=== PATIENT | male | born 1950 | race Caucasian/White ===

== ENCOUNTER 2020-08-03 07:18 | Outpatient (CLI) | payer MEDICARE, OTHER, SELFPAY ==
--- NOTE | 2020-08-03 07:46 | ECHO_ITS ---
Patient Info Name: Edy Colindres Age: 69 years : 1950 Gender: Male Ht: 68 in Wt: 270 lbs BSA: 2.48 m2 HR: 65 bpm BP: 130 / 86 mmHg Heart Rhythm: Sinus Rhythm Technical Quality: Good Exam Date: 08/03/2020 8:04 AM Exam Location: [facility] Patient Status: Outpatient Admit Date: 08/03/2020 Staff Ordering Physician: Laura Kwan Calender Machine Operator: Brenda Saul RDCS Attending Provider: Laura Kwan Referring Physician: Aquiles MARTÍNEZ; Exam Type: CA echo doppler color flow Study Info Indications R06.02 - Shortness of breath Complete two-dimensional, color flow and Doppler transthoracic echocardiogram is performed. History/Risk Factors Shortness of breath. Summary 1. Complete two-dimensional, color flow and Doppler transthoracic echocardiogram is performed. 2. Left ventricular chamber dimension is normal. 3. Left ventricular systolic function is normal, estimated at 60-65%. 4. The left ventricular diastolic function is grade I diastolic dysfunction. 5. E/e' 11 is mildly elevated. 6. There is mild aortic valve sclerosis. 7. There is mild tricuspid valve regurgitation. 8. No pulmonary hypertension, estimated pulmonary arterial systolic pressure is 20 mmHg. Left Ventricle E/e' 11 is mildly elevated. Left ventricular chamber dimension is normal. Left ventricular systolic function is normal, estimated at 60-65%. The left ventricular diastolic function is grade I diastolic dysfunction. Right Ventricle Right ventricular chamber dimension is normal. Right ventricular systolic function is normal. Left Atria Left atrial chamber dimension is normal. Right Atria Right atrial chamber dimension is normal. Aortic Valve The aortic valve is trileaflet. There is mild aortic valve sclerosis. There is no aortic valve stenosis. There is no aortic valve regurgitation. Pulmonic Valve There is no pulmonic regurgitation. Mitral Valve There is no mitral valve stenosis. There is no mitral valve regurgitation. Tricuspid Valve There is mild tricuspid valve regurgitation. No pulmonary hypertension, estimated pulmonary arterial systolic pressure is 20 mmHg. Pericardium/Pleural There is no pericardial effusion. Inferior Vena Cava Normal inferior vena cava with >50% collapse upon inspiration consistent with normal right atrial pressure, 5 mmHg. Aorta The aortic root size at the sinus of Valsalva is normal. Left Ventricular Outflow Tract Name Value Normal LVOT 2D LVOT Diameter 2.0 cm LVOT Doppler LVOT Peak Gradient 3 mmHg LVOT Mean Gradient 2 mmHg LVOT VTI 17 cm LVOT VTI/AV VTI Ratio 0.8 LVOT Stroke Volume 52 ml LVOT CO 3.6 l/min LVOT CI 1.4 l/min/m2 Mitral Valve Name Value Normal
--- NOTE | 2020-08-03 07:46 | EST_ITS ---
Patient Info Name: Edy Colindres Age: 69 years : 1950 Gender: Male Ht: 68 in Wt: 270 lbs BSA: 2.48 m2 Exam Date: 08/03/2020 8:57 AM Exam Location: [facility] Stress Patient Status: Outpatient Admit Date: 08/03/2020 Staff Ordering Physician: Laura Kwan Attending Provider: Laura Kwan Exercise Technologist: Tiffanie Santana RDCS Exercise Physician: Tone Cuevas DO Exam Type: CA stress test treadmill Study Info Indications R06.02 - Shortness of breath A treadmill exercise stress test was performed. Summary 1. 1. Negative Mike exercise stress test for ischemic ST changes by ECG criteria. 2. 2. Poor functional capacity, achieving 4 METs of workload. 3. 3. Hypertensive response to exercise. 4. 4. Appropriate HR response to exercise. 5. 5. Appropriate HR recovery at 1 minute post exercise. 6. 6. No imaging with stress testing. 7. 7. Patient informed of the above results. Protocol: Mike Stress ECG Details Stage: REST Duration (min): 9 min : 48 sec Speed (mph): 0.0 Grade (%): 0 HR (bpm): 73 SBP (mmHg): 129 DBP (mmHg): 83 METS: --- Stage: REST Duration (min): 11 min : 57 sec Speed (mph): 0.0 Grade (%): 0 HR (bpm): 74 SBP (mmHg): 129 DBP (mmHg): 83 METS: --- Stage: REST Duration (min): 12 min : 24 sec Speed (mph): 0.0 Grade (%): 0 HR (bpm): 71 SBP (mmHg): 129 DBP (mmHg): 83 METS: --- Stage: REST Duration (min): 13 min : 16 sec Speed (mph): 0.0 Grade (%): 0 HR (bpm): 82 SBP (mmHg): 129 DBP (mmHg): 83 METS: --- Stage: STAGE 1 Duration (min): 1 min : 0 sec Speed (mph): 1.7 Grade (%): 10 HR (bpm): 111 SBP (mmHg): 129 DBP (mmHg): 83 METS: --- Stage: STAGE 1 Duration (min): 2 min : 0 sec Speed (mph): 1.7 Grade (%): 10 HR (bpm): 133 SBP (mmHg): 129 DBP (mmHg): 83 METS: --- Stage: STAGE 1 Duration (min): 3 min : 0 sec Speed (mph): 1.7 Grade (%): 10 HR (bpm): 133 SBP (mmHg): 211 DBP (mmHg): 87 METS: --- Stage: RECOVERY Duration (min): 1 min : 0 sec Speed (mph): 0.0 Grade (%): 0 HR (bpm): 115 SBP (mmHg): 211 DBP (mmHg): 87 METS: --- Stage: RECOVERY Duration (min): 2 min : 0 sec Speed (mph): 0.0 Grade (%): 0 HR (bpm): 80 SBP (mmHg): 219 DBP (mmHg): 92 METS: --- Stage: RECOVERY Duration (min): 3 min : 0 sec Speed (mph): 0.0 Grade (%): 0 HR (bpm): 80 SBP (mmHg): 209 DBP (mmHg): 90 METS: --- Stage: RECOVERY Duration (min): 4 min : 0 sec Speed (mph): 0.0 Grade (%): 0 HR (bpm): 79 SBP (mmHg): 209 DBP (mmHg): 90 METS: --- Stage: RECOVERY Duration (min): 5 min : 0 sec Speed (mph): 0.0 Grade (%): 0 HR (bpm): 91 SBP (mmHg): 209 DBP (mmHg): 90 METS: --- Stage: RECOVERY Duration (min
== END 2020-08-03 07:19 | disposition home or self-care (01) ==
PROVIDERS: PCP Internal Medicine; Visit Provider Clinical Nurse Specialist
DX: R06.02 Shortness of breath (principal); I35.8 Other nonrheumatic aortic valve disorders; I07.1 Rheumatic tricuspid insufficiency
CPT/HCPCS: 93017; 93306

== ENCOUNTER 2020-08-25 07:09 | Outpatient (CLI) | payer MEDICARE, OTHER, SELFPAY ==
--- NOTE | 2020-09-16 20:53 | WPDHOMESLEEP ---
Sleep Study - Home Date of Study: 08/25/20 Ordering Provider: Lorin Oakes MD Interpreting Physician: Esha Alvarez MD Home Sleep Study Type: Apnea Link Air Height: 1.73 m Weight: 124.738 kg Body Mass Index: 41.8 [place]: 4 Reason for Sleep Study Prior history of obstructive sleep apnea in 2011; depression, hypertension. Sleep History Edy Colindres is a 69-year-old man 5 ft 8 in tall 275 lb with a body mass index 41.8. His Initial study July 07, 2011 showed severe obstructive sleep apnea with an apnea-hypopnea index of 32.1 with moderate snoring and multiple and severe oxygen desaturation with moderate myoclonus. On August 04, 2011 he had a CPAP titration with an optimal pressure of 15 cm with correction of respiratory events and snoring. The patient completed a sleep questionnaire indicating that he frequently snores but it is only rarely loud enough that others complain about it. He rarely awakens at night with heartburn, belching, or coughing. He does not awaken from sleep feeling short of breath. He rarely has trouble sleeping with a cold. He does not wake up gasping for breath at night. He does not have breathing problems at night reported to him by others. He does not sweat excessively at night and does not notice his heart pounding or beating irregularly night. He occasionally falls asleep during the day, never involuntarily and never while driving. He does not fall asleep during physical effort. He does not have loss of muscle tone was strong emotion. He does not have daytime difficulties due to excessive sleepiness. Does not feel paralyzed on waking or falling asleep. He does not have vivid dreamlike scenes upon awakening or falling asleep. He has never freight to go to sleep. He denies having nightmares. He occasionally remembers his dreams. He rarely has racing thoughts rarely has feelings of sadness or depression. He does not have anxiety, muscular tension, does not notice part his body jerking, he does not kick at night and denies having crawling or aching feelings in his legs. He does not have leg pain at night. He does not have morning jaw pain. He does not grind his teeth during sleep. He is not bothered by pain during the day. He is not awakened by pain during the night, does not wake up feeling stiff in the morning with sore or achy muscles. He does not have pain in the neck or spine. He does take and acids regularly. He indicates that he does have sexual problems. Occasionally wakes up feeling refreshed. rarely has memory or concentration problems. Normal schedule reveals he goes to bed at 10:00 p.m. falling asleep within 30 minutes waking twice to go to the bathroom. When he awakens, he stays awake for about half an hour. He wakes the morning at 7:00 a.m.. He does take naps. A short nap may be refreshing. He is usually drowsy in the morning for 1 hour or longer. He feels better in the afternoon compared to other times of the day. Habits: Quit tobacco 40 years ago. Caffeine 4l cups per day. Alcohol 2-3 beers per day. No recreational drugs. [facility] Past Medical History Medical History (Updated 09/16/20 @ 21:33 by Esha Alvarez MD) Acute adjustment disorder with depressed mood Angioedema Chicken pox Chronic bronchitis Depression Diabetes History of measles, mumps, or rubella Hyperlipidemia Hypertension Left ankle injury surgical repair Obesity Obstructive sleep apnea (~2010) Type 2 diabetes mellitus Family History Family History (Reviewed 12/24/19 @ 13:25 by Eliza Livingston [facility]) Father Heart disease Mother COPD (chronic obstructive pulmonary disease) CHF (congestive heart failure), NYHA class I Cerebrovascular accident Social History Social History (Updated 09/16/20 @ 21:35 by Esha Alvarez MD) Smoking status: Former smoker Smoking end date: 11/26/76 Alcohol intake: current Alcohol use details: 2-3 beers a day Living arrangements: with family
[2020-09-16 21:36] VITALS: BMI 41.8
== END 2020-08-25 07:10 | disposition home or self-care (01) ==
LOC: ANHCSM 07:14
PROVIDERS: PCP Internal Medicine; Visit Provider Internal Medicine Endocrinology, Diabetes & Metabolism
DX: G47.33 Obstructive sleep apnea (adult) (pediatric) (principal); I10 Essential (primary) hypertension; J42 Unspecified chronic bronchitis; E11.9 Type 2 diabetes mellitus without complications; E78.5 Hyperlipidemia, unspecified; E66.9 Obesity, unspecified; F32.9 Major depressive disorder, single episode, unspecified; F43.21 Adjustment disorder with depressed mood; Z87.891 Personal history of nicotine dependence
CPT/HCPCS: 95806

== ENCOUNTER 2020-12-25 14:33 | Emergency (ER) | payer MEDICARE, OTHER, SELFPAY ==
--- NOTE | ~2020-12-25 | XR_ITS ---
[id number] DATE: 12/25/2020 15:13 INDICATION: Right rib injury 2 days ago. Axillary rib pain. TECHNIQUE: PA chest. 3 views of the right ribs. COMPARISON: None FINDINGS: There is recent fracture of the anterior aspect of the right eighth, ninth, 10th and 11th r ibs. There is displacement at the ninth and to a lesser extent 10th rib fractures. Diffuse idiopathic skeletal hyperostosis and mild dextroscoliosis of the thoracic spine. Normal heart size. No hilar or mediastinal enlargement. No pulmonary infiltrate or consolidation, pleural effusion or pneumothorax is detected. IMPRESSION: Right eighth through 11th rib fractures Reviewed, dictated and finalized at [facility]. Reviewed, dictated and finalized at location [facility]. ICAL PATHOLOGIST
[2020-12-25 14:42] VITALS: BP 139/87; PULSE 73; RESP 18; TEMP 36.2; O2SAT 98
--- NOTE | 2020-12-25 16:08 | ED.GENADULT ---
HPI - General Adult General Chief complaint: Unspecified <Brittany Marina PA-C - Last Filed: 12/25/20 21:03> Stated complaint: Right Rib Pain <Brittany Marina PA-C - Last Filed: 12/25/20 21:03> Time Seen by Provider: 12/25/20 14:39 <Brittany Marina PA-C - Last Filed: 12/25/20 21:03> Source: patient <ROSALINDA Ramos Last Filed: 12/25/20 21:03> Mode of arrival: ambulatory <ROSALINDA Ramos Last Filed: 12/25/20 21:03> Limitations: no limitations <ROSALINDA Ramos Last Filed: 12/25/20 21:03> History of Present Illness HPI narrative: Patient presents with chief complaint of pain to the right lower ribs that began on after the patient fell onto a futon arm while stacking wood. Patient states that he has since had some discomfort to the area but he noticed his discomfort increased with deep breathing, sneezing and coughing. Patient states he is still able to take deep breaths. Patient denies coughing up blood or feeling short of breath. Patient denies any head injury or loss of consciousness. He states he has some bruising to the right lower thorax. He states he has been taking tylenol and aleve at home with minimal improvement. <Brittany Marina PA-C - Last Filed: 12/25/20 21:03> Related Data Home medications: Home Medications Medication Instructions Recorded Confirmed lancets 30 gauge #25 each 04/06/20 07/06/20 omalizumab 75 mg/0.5 mL 150 mg SUB-Q MONTHLY ml 07/08/20 subcutaneous syringe omeprazole 10 mg capsule,delayed 10 mg PO DAILY 07/08/20 release <ROSALINDA Ramos Last Filed: 12/25/20 21:03> Allergies/adverse reactions: Allergies Allergy/AdvReac Type Severity Reaction Status Date / Time No Known Allergies Allergy Verified 12/25/20 14:47 <ROSALINDA Ramos Last Filed: 12/25/20 21:03> Review of Systems Review of Systems: Narrative: CONSTITUTIONAL: Denies fever, chills, or sweats. EYES: Denies visual changes, redness, or discharge. ENT: Denies rhinorrhea, congestion, sore throat, or otalgia. CARDIOVASCULAR: Denies chest pain, palpitations, or edema. RESPIRATORY: Denies cough or dyspnea. GASTROINTESTINAL: Denies abdominal pain, nausea, vomiting, or diarrhea. GENITOURINARY: Denies dysuria or hematuria. SKIN: Denies rash or itching. MUSCULOSKELETAL: Reports right rib pain denies back pain or myalgia. NEUROLOGIC: Denies headache, numbness, dizziness, or weakness. PSYCHIATRIC: Denies anxiety or depression. <Brittany Marina PA-C - Last Filed: 12/25/20 21:03> [facility] Past Medical History Medical History: Medical History Acute adjustment disorder with depressed mood Angioedema Chicken pox Chronic bronchitis Depression Diabetes History of measles, mumps, or rubella Hyperlipidemia Hypertension Left ankle injury surgical repair Obesity Obstructive sleep apnea (~2010) Type 2 diabetes mellitus <Brittany Marina PA-C - Last Filed: 12/25/20 21:03> Family History Family History: Family History Father Heart disease Mother COPD (chronic obstructive pulmonary disease) CHF (congestive heart failure), NYHA class I Cerebrovascular accident <Brittany Marina PA-C - Last Filed: 12/25/20 21:03> Social History Social History: Social History Smoking status: Former smoker Smoking end date: 11/26/76 Alcohol intake: current <Brittany Marina PA-C - Last Filed: 12/25/20 21:03> Exam Narrative: Exam Narrative: GENERAL: Well-appearing, well-nourished, and in no acute distress. HEAD: Normocephalic, atraumatic. No ecchymosis or hematomas. EYES: PERRLA and EOMI. NECK: Supple. No adenopathy or masses. CHEST: Clear to auscultation. No respiratory distress. No wheezes rales or rhonchi. Ecchymosis to right lower thorax. Tenderness with palpation to right low
[2020-12-25] MEDS: HYDROcodone/acetaminophen (*CRX) 5-325 MG TABLET 1 TAB PO (16:15)
== END 2020-12-25 16:37 | disposition home or self-care (01) ==
PROVIDERS: Emergency Provider General Practice; PCP Internal Medicine
DX: S22.49XA Multiple fractures of ribs, unspecified side, initial encounter for closed fracture (principal); E11.9 Type 2 diabetes mellitus without complications; E78.5 Hyperlipidemia, unspecified; I10 Essential (primary) hypertension; G47.33 Obstructive sleep apnea (adult) (pediatric); E66.9 Obesity, unspecified; Z68.41 Body mass index [BMI] 40.0-44.9, adult; Z87.891 Personal history of nicotine dependence; W01.190A Fall on same level from slipping, tripping and stumbling with subsequent striking against furniture, initial encounter
CPT/HCPCS: 71101; 99283; A9270

== ENCOUNTER 2022-06-20 08:18 | Outpatient (CLI) | payer MEDICARE, OTHER, SELFPAY ==
--- NOTE | 2022-06-20 08:29 | ECHO_ITS ---
Patient Info Name: Edy Colindres Age: 71 years : 1950 Gender: Male Ht: 68 in Wt: 260 lbs BSA: 2.43 m2 HR: 70 bpm BP: 145 / 101 mmHg Technical Quality: Good Exam Date: 06/20/2022 8:58 AM Exam Location: [facility] Patient Status: Outpatient Admit Date: 06/20/2022 Staff Ordering Physician: Laura Kwan Vacuum Furnace Operator: Tiffanie Santana RDCS Attending Provider: Laura Kwan Referring Physician: Aquiles MARTÍNEZ; Exam Type: CA echo doppler color flow Study Info Indications R06.02 - Shortness of breath Complete two-dimensional, color flow and Doppler transthoracic echocardiogram is performed. Summary 1. Complete two-dimensional, color flow and Doppler transthoracic echocardiogram is performed. 2. Left ventricular chamber dimension is normal. 3. Left ventricular systolic function is normal, estimated at 55-60%. 4. There is mildly increased left ventricular wall thickness. 5. The left ventricular diastolic function is grade I diastolic dysfunction. 6. E/e' 10 is mildly elevated. 7. Global longitudinal strain is normal at -17.1%. 8. There is mild aortic valve sclerosis. 9. No pulmonary hypertension, estimated pulmonary arterial systolic pressure is 28 mmHg. Left Ventricle E/e' 10 is mildly elevated. Global longitudinal strain is normal at -17.1%. Left ventricular chamber dimension is normal. Left ventricular systolic function is normal, estimated at 55-60%. There is mildly increased left ventricular wall thickness. The left ventricular diastolic function is grade I diastolic dysfunction. Right Ventricle Right ventricular systolic function is normal and with normal TAPSE 2.2 cm. Right ventricular chamber dimension is normal. Left Atria Left atrial chamber dimension is normal. Right Atria Right atrial chamber dimension is normal. Aortic Valve The aortic valve is trileaflet. There is mild aortic valve sclerosis. There is no aortic valve stenosis. There is no aortic valve regurgitation. Pulmonic Valve There is no pulmonic regurgitation. Mitral Valve There is no mitral valve stenosis. There is no mitral valve regurgitation. Tricuspid Valve There is no tricuspid valve regurgitation. No pulmonary hypertension, estimated pulmonary arterial systolic pressure is 28 mmHg. Pericardium/Pleural There is no pericardial effusion. Inferior Vena Cava Normal inferior vena cava with >50% collapse upon inspiration consistent with normal right atrial pressure, 5 mmHg. Aorta The aortic root size at the sinus of Valsalva is normal. Left Ventricular Outflow Tract Name Value Normal LVOT 2D LVOT Diameter 2.0 cm LVOT Doppler LVOT Peak Gradient 3 mmHg LVOT Mean Gradient 2 mmHg LVOT VTI 17 cm LVOT VTI/AV VTI Ratio 0.8 LVOT Stroke Volume 56 ml LVOT CO 4.9 l/min LVOT CI 2.0 l/min/m2 Pulmonic Valve
== END 2022-06-20 08:19 | disposition home or self-care (01) ==
LOC: ANHCARD 08:21
PROVIDERS: PCP Internal Medicine; Visit Provider Clinical Nurse Specialist
DX: R06.02 Shortness of breath (principal); I35.8 Other nonrheumatic aortic valve disorders
CPT/HCPCS: 93306

== ENCOUNTER 2022-07-10 08:02 | Outpatient (CLI) | payer MEDICARE, OTHER, SELFPAY ==
--- NOTE | ~2022-07-10 | NM_ITS ---
EXAMINATION: NM michelle stress w perfusion DATE: 07/10/2022 10:41 CDT INDICATION: Shortness of breath TECHNIQUE: Rest images were obtained following intravenous administration of 9.6 mCi Tc99m tetrofosmi n (Myoview). The patient was infused intravenously with Lexiscan (regadenoson). Then, 31.5 mCi Tc99m tetrofosmin (Myoview) was administered intravenously, and stress images were obtained. Data was recon structed into short axis and horizontal and vertical long axis SPECT images. Gated SPECT images were also obtained. COMPARISON: None. FINDINGS: There is no definite reversible or fixed perfusion abnormality to suggest ischemia or infar ction. There is no segmental wall motion abnormality. Left ventricular ejection fraction measures 7 3%. IMPRESSION: 1. No definite ischemia or infarct. 2. Normal left ventricular ejection fraction measuring 73%. Reviewed, dictated and finalized at location [facility].
--- NOTE | 2022-07-10 08:11 | EST_ITS ---
Patient Info Name: Edy Colindres Age: 71 years : 1950 Gender: Male Ht: 68 in Wt: 260 lbs BSA: 2.43 m2 HR: 77 bpm BP: 157 / 92 mmHg Heart Rhythm: Sinus Rhythm Exam Date: 07/10/2022 8:51 AM Exam Location: [facility] Stress Patient Status: Outpatient Admit Date: 07/10/2022 Staff Ordering Physician: Laura Kwan Attending Provider: Laura Kwan Exercise Technologist: Karyn Huizar CT Exercise Physician: Tone Cuevas DO Exam Type: CA stress michelle w NM Study Info Indications R06.02 - Shortness of breath A regadenoson stress test was performed. Summary 1. 1. Negative lexiscan stress test for ischemic ST changes by ECG criteria. 2. 2. Baseline hypertension. 3. 3. Nuclear scan to follow and will be reported separately. Please correlate with it. 4. 4. Patient informed of the above results. Protocol: Lexiscan Stress ECG Details Stage: REST Duration (min): 4 min : 47 sec HR (bpm): 70 SBP (mmHg): 157 DBP (mmHg): 92 Stage: REST Duration (min): 9 min : 55 sec HR (bpm): 71 SBP (mmHg): 157 DBP (mmHg): 92 Stage: STAGE 1 Duration (min): 1 min : 0 sec HR (bpm): 98 SBP (mmHg): 157 DBP (mmHg): 92 Stage: RECOVERY Duration (min): 1 min : 0 sec HR (bpm): 90 SBP (mmHg): 151 DBP (mmHg): 87 Stage: RECOVERY Duration (min): 2 min : 0 sec HR (bpm): 71 SBP (mmHg): 151 DBP (mmHg): 87 Stage: RECOVERY Duration (min): 3 min : 0 sec HR (bpm): 80 SBP (mmHg): 151 DBP (mmHg): 94 Stage: RECOVERY Duration (min): 3 min : 4 sec HR (bpm): 86 SBP (mmHg): 151 DBP (mmHg): 94 Rest HR: 71 bpm Peak HR: 98 bpm Rest Sys BP: 157 mmHg Peak Sys BP: 151 mmHg Max Pred HR: 151 bpm % Max Pred HR: 65 % Target HR: 128 bpm Max RPP: 14,798 bpm*mmHg Termination Reason: Completed protocol Cardiac Symptoms: None Total Time: 1 min : 0 sec Rest Aranda BP: 92 mmHg Peak Aranda BP: 94 mmHg Total Dose: 0.4 mg Resting ECG Sinus rhythm. Stress ECG No ST changes. Arrhythmias None. Report Signatures
== END 2022-07-10 08:03 | disposition home or self-care (01) ==
LOC: ANHCARD 08:03
PROVIDERS: PCP Internal Medicine; Visit Provider Clinical Nurse Specialist
DX: R06.02 Shortness of breath (principal)
CPT/HCPCS: 78452; 93017; A9502; J2785

== ENCOUNTER 2022-08-04 10:13 | Outpatient (CLI) | payer MEDICARE, OTHER, SELFPAY ==
[2022-08-04 11:09] LABS: Basophils Absolute Auto 0.1 K/mm3 (0.0-0.1); Basophils Percent Auto 1.5 % (0.2-1.2); Eosinophils Absolute Auto 0.2 K/mm3 (0-0.3); Eosinophils Percent Auto 2.9 % (0-4.4); Hematocrit 46.8 % (42.0-52.0); Hemoglobin 15.5 g/dL (14.0-18.0); Immature Granulocyte Absolute 0.07 K/mm3 (0.00-0.031); Immature Granulocyte Percent A 0.9 % (0-0.5); Lymphocytes Absolute Auto 1.91 K/mm3 (0.9-3.2); Lymphocytes Percent Auto 25.5 % (18.3-44.2); Mean Corpuscular HGB Conc 33.1 g/dl (32-36); Mean Corpuscular Hemoglobin 28.4 pg (26-34); Mean Corpuscular Volume 85.9 fl (80-100); Mean Platelet Volume 10.3 fl (7.4-10.4); Monocytes Absolute Auto 0.6 K/mm3 (0.1-0.6); Monocytes Percent Auto 7.9 % (2.6-8.5); Neutrophils Absolute Auto 4.6 K/mm3 (1.3-6.7); Neutrophils Percent Auto 61.3 % (45.5-73.1); Platelet Count Result 222 k/mm3 (150-375); Red Blood Count 5.45 M/mm3 (4.6-6.20); Red Cell Distribution Width 13.4 % (11.5-14.5); White Blood Count 7.5 K/mm3 (4.5-10.0)
[2022-08-04 12:15] LABS: Free T4 Free Thyroxine 0.86 ng/mL (0.78-2.19); Vitamin D 25 Hydroxy 16.5 ng/mL
[2022-08-04 12:23] LABS: Microalbumin Urine Random 8.2 mg/L (0-16.7)
[2022-08-04 12:25] LABS: MALB Creatinine Ratio 15.8 mg/g (0-30)
[2022-08-04 14:55] LABS: Alanine Aminotransferase 24 U/L (6-50); Albumin Level 4.6 g/dL (3.5-5.1); Alkaline Phosphatase 116 U/L (38-126); Anion Gap 14 mmol/L (8-16); Aspartate Amino Transferase 26 U/L (17-59); Bilirubin,Total 0.4 mg/dL (0.2-1.3); Blood Urea Nitrogen 16 mg/dL (9-20); Calcium 9.7 mg/dL (8.4-10.2); Carbon Dioxide 22 mmol/L (22-30); Chloride 99 mmol/L (98-107); Cholesterol 175 mg/dL (0-200); Estimated Glomerular Filt Rate > 60; Glucose 151 mg/dL (65-110); HDL Direct 54 mg/dL; Potassium 4.3 mmol/L (3.4-5.0); Sodium 135 mmol/L (137-145); Triglycerides 71 mg/dL (<150)
[2022-08-04 15:09] LABS: LDL Cholesterol Direct 91 mg/dL
[2022-08-04 15:26] LABS: Prostate Specific Antigen 2.4 ng/mL (< OR = 4.0)
== END 2022-08-04 10:14 | disposition home or self-care (01) ==
PROVIDERS: PCP Internal Medicine; Referring Provider Clinical Nurse Specialist; Visit Provider Nurse Practitioner Family
DX: E11.9 Type 2 diabetes mellitus without complications (principal); E55.9 Vitamin D deficiency, unspecified; E78.5 Hyperlipidemia, unspecified; E88.81 Metabolic syndrome and other insulin resistance; R06.02 Shortness of breath; Z12.5 Encounter for screening for malignant neoplasm of prostate
CPT/HCPCS: 36415; 80053; 80061; 82043; 82306; 82607; 84153; 84439; 84443; 85025; G0103

== ENCOUNTER 2025-03-24 10:31 | Outpatient (CLI) | payer MEDICARE, OTHER, SELFPAY ==
--- OUTSIDE RECORDS SUMMARY | 2025-03-24 11:44 | XMS_ITS | Continuity of Care Document ---
Author Name [facility] Organization [facility] Care Team Providers Care Email Campaign Specialist Name Role Phone DOD-[facility] Unavailable Unavailable Problems Combined list of problems from Department of Defense and Veterans Affairs facilities. It does not include entries that were removed or entered in error. Problem Status Onset Date Problem Type Date of Resolution Comments Source URTICARIA Active Condition DoD SINUS TACHYCARDIA Active Condition EK G changes for 2002 DoD EDEMA Active Condition DoD visit for: issue repeat prescription Inactive Condition DoD Snoring Active Condition Due to his problem with daytime fatigue, and relatively high risk profile I will send him for sleep study to confirm or refute VIDA DoD DEPRESSION Active Condition Could pos sibly benefit from trial of SSRI - due to multiple med changes today, will reevaluate in 1 month and consider starting then. Pt very comfortable with this POC. [facility] Laboratory Studies Inactive Condition Do D HYPERTENSION (SYSTEMIC) Active Condition Monitor Sodium closely, maintain at 2 gm qd DoD SCOLIOSIS Active Condition Noted curv ature both thoracic and lumbar.Please evaluate DoD HYPERLIPIDEMIA Active Condition DoD ESSENTIAL HYPERTENSION BENIGN Active Condition Still not at goal 130/80. Increase Adalat to 90mg daily, pt to f[facility]u with [facility]M [facility] in 1 month. [facility] DIABETES MELLITUS TYPE 2 Active Condition Will alter regimen slightly - Glucovance 2.5mg/500mg take 1 tab in AM and 1 tab in afternoon, then Glucovance 5/500 take 2 tablets qhs. 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 f/u with new PCM in 1 month, have fasting labs drawn 1-2 days prior to appt. Pt expressed understanding. [facility] DIABETES MELLITUS Active Condition DoD visit for: issue repeat prescription for medication Inactive Condition DoD visit for: administrative purpose Active Condition DoD muscle cramps in the calf Inactive Condition DoD muscle cramps in the thigh (upper leg) Inactive Condition DoD ANGIOEDEMA Inactive Condition DoD UPPER RESPIRATORY INFECTION Inactive Condition Will treat with Entex - pt to drink plenty of water, wash hands regularly and to follow-up if not better after 7-10 days. DoD INGROWING NAIL Inactive Condition Infec tion significantly improved, here for removal. Informed consent signed, in records. Right great toe anesth with 5 cc 1% Lidocaine without epi (digital block), toe prepped/draped in usual fashion. Partial nail excision carried out in usual fashion. [facility] INGROWING NAIL WITH INFECTION Inactive Condition Will sched fo r partial removal. Keflex 500mg bid x 7 days. Will sched pt for removal. [facility] ESSENTIAL HYPERTENSION Active Condition DoD Medications Combined list of outpatient medications from Department of Defense and Veterans Affairs facilities.Medications provided include 1) outpatient medications from the last 15 months, and 2) patient-reported medications. Medication Details Route Status Patient Instructions Prescription Expires Prescription Number Last Dispense Date Ordering Provider Order Date Order Qty Source albuterol 90 mcg inhaler [8.5g] = 2 puff(s), Inhale, every 4 hr, # 8.5 g, 0 total refill(s ), Hard Stop Inhala tion (breat he in) Complet ed 07/31/2024 3 2023 8.5 Ambulat ory Pharmac y albuterol 90 mcg/inh inhalation aerosol INHALE 1 PUFF BY MOUTH EVERY FOUR HOURS NEEDED FOR SHORTNES S OF BREATH OR WHEEZING , # 8.5 g, 1 total refill(s ), Acute Complet ed 05/10/2023 2 2022 8.5 Ambulat ory Pharmac y albuterol 90 mcg/inh inhalation aerosol INHALE 2 PUFFS EVERY 4-6 HOURS NEEDED AND PER THE ASTHMA ACTION PLAN, # 8.5 g, 0 total refill(s ), Acute Complet ed 02/20/20242023 8.5 Ambulat ory Pharmac y aspirin 81 mg oral delayed release tablet TAKE ONE TABLET DAILY, # 90 EA, 1 total refill(s ), Acute Complet ed 05/10/2023 2 2022 90.0 Ambulat ory Pharmac y Baqsimi 3 mg nasal powder [2EA] See Instruct ions, # 2 EA, 4 total refill(s ), Hard Stop Complet ed 12/17/2024 4 2024 2.0 Ambulat ory Pharmac y BD insulin syringe 1 mL 31 g 8 mm [100EA] See Instruct ions, # 100 EA, 3 total refill(s ), Hard Stop Ordered 07/01/2025 4 2023 100.0 Ambulat ory Pharmac y BD insulin syringe 1 mL 31 g 8 mm [100EA] See Instruct ions, # 100 EA, 3 total refill(s ), Hard Stop Complet ed 09/17/2024 4 2023 100.0 Ambulat ory Pharmac y cetirizine 10 mg oral tablet TAKE ONE TABLET TWICE DAILY NEEDED, # 90 EA, 2 total refill(s ), Acute Complet ed 11/13/2023 2 2022 90.0 Ambulat ory Pharmac y dulaglutide 3 mg/0.5 mL subcutaneou s solution INJECT 3MG SUB-CUTA NEOUSLY EVERY WEEK DIRECTED , # 6 mL, 1 total refill(s ), Acute Complet ed 11/07/20232022 6.0 Ambulat ory Pharmac y ergocalcife rol 1.25 mg (50,000 intl units) oral capsule TAKE ONE CAPSULE BY MOUTH EVERY WEEK FOR 8 WEEKS DIRECTED , # 8 EA, 4 total refill(s ), Acute Complet ed 08/06/2023 2 2022 8.0 Ambulat ory Pharmac y freestyle lite (glucose) test strip [50EA] See Instruct ions, # 200 EA, 0 total refill(s ), Hard Stop Complet ed 07/12/2024 4 2023 200.0 Ambulat ory Pharmac y glucagon 1 mg injection MIX AND INJECT 1MG SUB-CUTA NEOUSLY EVERY 20 MINUTES NEEDED FOR LOW BLOOD SUGAR UNTIL TARGET BLOOD SUGAR ATTAINED ., # 1 EA, 0 total refill(s ), Acute Complet ed 08/15/20232022 1.0 Ambulat ory Pharmac y Glucagon 3 mg Powder, Nasal Take or use exactly as directed .Obtain advice for OTCs.For the nose. 12/17/2024 [id number] 4 2023 2 [facility] Azar ONEILL ([facility]) glucose sensor freestyle gianfranco 3 See Instruct ions, # 6 EA, 3 total refill(s ), Hard Stop Complet ed 12/17/2024 4 2024 6.0 Ambulat ory Pharmac y glucose sensor freestyle gianfranco 3 See Instruct ions, # 6 EA, 4 total refill(s ), Hard Stop Ordered 07/01/2025 4 2023 6.0 Ambulat ory Pharmac y insulin glargine [Lantus] 100 units/mL inj-vial [10mL] See dose instruct ions in comments , # 80 mL, 2 total refill(s ), Acute Complet ed 08/08/2023 3 2022 80.0 Ambulat ory Pharmac y insulin glargine [Lantus] 100 units/mL inj-vial [10mL] See Instruct ions, # 80 mL, 3 total refill(s ), Hard Stop Discont inued 03/18/2025 4 2024 80.0 Ambulat ory Pharmac y insulin glargine [Lantus] 100 units/mL inj-vial [10mL] See Instruct ions, # 80 mL, 3 total refill(s ), Soft Stop Ordered 5 2024 80.0 Ambulat ory Pharmac y insulin glargine [Lantus] 100 units/mL inj-vial [10mL] See Instruct ions, # 80 mL, 3 total refill(s ), Hard Stop Discont inued 07/03/2024 3 2023 80.0 Ambulat ory Pharmac y ipratropium 42 mcg/inh (0.06%) nasal spray USE 2 SPRAYS INTRANAS ALLY FOUR TIMES A DAY DIRECTED , # 15 mL, 0 total refill(s ), Acute Complet ed 08/29/20232022 15.0 Ambulat ory Pharmac y ipratropium 42 mcg/inh nasal spray [15mL] = 2 spray(s) , # 45 mL, 0 total refill(s ), Hard Stop Complet ed 07/31/2024 3 2023 45.0 Ambulat ory Pharmac y Jardiance 10 mg tablet See dose instruct ions in comments , # 90 EA, 1 total refill(s ), Acute Complet ed 11/07/2023 3 2022 90.0 Ambulat ory Pharmac y Jardiance 25 mg tablet 25 mg, Oral, Daily, # 90 EA, 1 total refill(s ), Hard Stop Oral (given by mouth) Complet ed 09/17/2024 4 2023 90.0 Ambulat ory Pharmac y Micardis HCT 80 mg- 25 mg tablet = 1 tab(s), Oral, Daily, # 90 EA, 1 total refill(s ), Hard Stop Oral (given by mouth) Complet ed 06/03/2024 4 2023 90.0 Ambulat ory Pharmac y montelukast 10 mg oral tablet TAKE ONE TABLET DAILY, # 90 EA, 1 total refill(s ), Acute Complet ed 11/13/2023 2 2022 90.0 Ambulat ory Pharmac y omeprazole 10 mg oral delayed release capsule TAKE ONE CAPSULE DAILY, # 90 EA, 1 total refill(s ), Acute Complet ed 05/10/20232022 90.0 Ambulat ory Pharmac y OZEMPIC (semaglutid e), 2MG/0.75ML, PEN INJCTR, SUBCUT, OLIVA NORDISK, 3 ml SYRINGE Cancele d [id number] : 2023 0 Pharmac y Data Transac t[employer] Service Facilit y sertraline (U/D) 100 MG ORAL TAB May cause drowsine ss.Take or use exactly as directed .Obtain advice for OTCs. Active 05/07/2025 [id number] 4 2023 135 [employer] Azar ONEILL ([facility]) sertraline 100 mg oral tablet TAKE ONE AND ONE-HALF TABLETS BY MOUTH EVERY DAY, # 135 EA, 1 total refill(s ), Acute Complet ed 05/10/2023 2 2022 135.0 Ambulat ory Pharmac y sertraline 100 mg tablet See Instruct ions, # 135 EA, 1 total refill(s ), Hard Stop Ordered 05/07/2025 4 2023 135.0 Ambulat ory Pharmac y sertraline 100 mg tablet See dose instruct ions in comments , # 135 EA, 1 total refill(s ), Acute Complet ed 11/07/2023 3 2022 135.0 Ambulat ory Pharmac y Trelegy Ellipta 200 mcg-62.5 mcg-25 mcg inh [60EA] See Instruct ions, Inhale, Daily, # 180 EA, 1 total refill(s ), Hard Stop Inhala tion (breat he in) Complet ed 07/31/2024 3 2023 180.0 Ambulat ory Pharmac y Allergies, Adverse Reactions, Alerts Combined list of allergies from Department of Defense and Veterans Affairs facilities. It does not include entries that were removed or entered in error. Substance Category Reaction Severity Reaction type Status Date Reported Comments Source KAT INHIBITORS Drug allergy (disorder) Unknown active 4 [facility] Azar ONEILL ([facility]) KAT inhibitors Propensity to adverse reactions to drug Unknown Active 4 PER PATIENT May EAS/CAPT Unknown Organizatio n Immunizations Combined list of available immunizations from the Department of Defense and Veterans Affairs facilities. Immunization Series Date Given Administered By Site Reaction Lot Number CVX Code Drug Rehab Office Coordinator Status Comments Source COVID-19, mRNA, LNP-S, PF, 30 mcg/0.3 mL dose 2020 [employer] [place] (PFR) Not Given COVID-19, mRNA, LNP-S, PF, 30 mcg/0.3 mL dose [facility] zoster vaccine live 2012 zzLef t Arm [id number] [employer] complet ed zoster vaccine live 04/10/13 Given Ambulat ory Pharmac y tetanus, diphtheria, acellular pertu is 2012 zzLef t Arm [id number] 115 [facility] complet ed tetanus, diphtheri a, acellular pertussis 04/10/13 Given Ambulat ory Pharmac y tetanus toxoid, reduced diphtheria toxoid, and acellular pertu is vaccine, adsorbed 1 2012 Unknown, Provider [id number] 115 [employer] (SKB) complet ed tetanus toxoid, reduced diphtheri a toxoid, and acellular pertussis vaccine, adsorbed [facility] zoster vaccine, live 1 2012 Unknown, Provider [id number] Merck (MSD) complet ed zoster vaccine, live DoD tetanus-dipht h toxoids (Td) adult/adol 2002 zzRig ht Arm [id number] sanofi pasteur complet ed tetanus-d iphth toxoids (Td) adult/ado l 09/24/03 Given Ambulat ory Pharmac y tetanus and diphtheria toxoids, adsorbed, preservative free, for adult use (2 Lf of tetanus toxoid and 2 Lf of diphtheria toxoid) 1 2002 Unknown, Provider [id number] Sanofi Pasteur (PMC) complet ed tetanus and diphtheri a toxoids, adsorbed, preservat kiran free, for adult use (2 Lf of tetanus toxoid and 2 Lf of diphtheri a toxoid) DoD Encounters Combined list of: 1) Encounters from Department of Veterans Affairs facilities going backup to the last 18 months, not all VA inpatient encounters are included; 2) Encounters from the Department of Defense facilities going backup to 280 months. Location Location Details Encounter Type Encounter Number Reason For Visit Attending Provider ADM Date DC Date Status Disposition Source [address] [place] [address] Azar ONEILL [facility] Non-GME FHI2) OUTPATIENT [id number] f/u dm/gabriel wal on meds RUSSEL CRISTOBAL 11/30 Released w/o Limitations [address] [place] [address] Azar ONEILL [facility] Non-GME FHI2) [address] [place] [address] Azar ONEILL [facility] Non-GME FHI2) TELE CONSULT [id number] needs blood work ordered LONI VIERA 03/[address] [place] [address] Azar ONEILL [facility] e Non-GME FHI2) [address] [place] [address] Azar ONEILL [facility] Non-GME FHI2) OUTPATIENT [id number] f/u cholest asad dm sugar levels low/ofelia nge of meds RUSSEL CRISTOBAL 04/11 Released w/o Limitations [address] [place] [address] Azar ONEILL [facility] Non-GME FHI2) [address] [place] [address] Azar B ([facility])([facility] Non-GME FHI2) OUTPATIENT [id number] toenail removal RUSSEL CRISTOBAL 04/14 Released w/o Limitations [address] [place] [address] Azar B ([facility])([facility] Non-GME FHI2) [address] [place] [address] Azar B [facility] Non-GME FHI2) TELE CONSULT [id number] sinus infecti on BROOKE GUO L 09/[address] [place] [address] Azar B [facility] Non-GME FHI2) [address] [place] [address] Azar B [facility] Non-GME FHI2) OUTPATIENT [id number] c/o sinus pain/pr essure, congest ion x 7 days MELANI ROJAS 09/19 Released w/o Limitations [address] [place] [address] Azar B [facility] Non-GME FHI2) [address] [place] [address] Azar B [facility] Non-GME FHI1) TELE CONSULT [id number] BROOKE GUO L 10/[address] [place] [address] Azar B [facility] Non-GME FHI1) [address] [place] [address] Azar B [facility] Non-GME FHI2) OUTPATIENT [id number] f/u hyperli pidemia RUSSEL CRISTOBAL 10/17 Released w/o Limitations [address] [place] [address] Azar B [facility] Non-GME FHI2) [address] [place] [address] Azar B [facility] Non-GME FHI2) TELE CONSULT [id number] pt's zocor was increas ed to 40mg/no w has augustampmookie GUO BROOKE L 10/[address] [place] [address] Azar B [facility] Non-GME FHI2) [address] [place] [address] [employer] [employer] [facility] Non-GME FHI2) TELE CONSULT [id number] RX REFILL- -1 MONTH ONLY BROOKE GUO L 02/[address] [place] [address] Azar [facility])(F amily Practic e Non-GME FHI2) [address] [place] [address] Azar [facility])([facility] Non-GME FHI2) OUTPATIENT [id number] F/U DM; RX REFRILL RUSSEL CRISTOBAL 03/05 Released w/o Limitations [address] [place] [address] Azar [facility])([facility] Pract[facility] e Non-GME FHI2) [address] [place] [address])([facility] Non-GME FHI2) OUTPATIENT [id number] f/u dm/chol esterol /bp SAMUEL FRIEDMAN 08/13 Released w/o Limitations [address] [place] [address])([facility] Non-GME FHI2) [address] [place] [address])([facility] Non-GME FHI2) TELE CONSULT [id number] labs for appt- Marina BURRELL NINACAMILA ROACH 04/[address] [place] [address])([facility] Pract[facility] e Non-GME FHI2) [address] [place] [address])([facility] Non-GME FHI1) TELE CONSULT [id number] Needs emergen cy refill on medicat ion-Ple ase contact pt brandin-is going out of [facility] ROSELINE BELL 04/[address] [place] [address] Azar [facility])(F amily Practic e Non-GME FHI1) [address] [place] [address])([facility] Non-GME FHI2) OUTPATIENT [id number] f/u on diabeti s [phone]# RUSSEL CRISTOBAL 05/01 Released w/o Limitations [address] [place] [address] Azar [facility])([facility] Practic e Non-GME FHI2) [address] [place] [address])([facility] Non-GME FHI2) OUTPATIENT [id number] f/u b/p and ALEX Stone 05/28 Released w/o Limitations [address] [place] [address])([facility] Non-GME FHI2) [address] [place] [address])([facility] Non-GME FHI1) TELE CONSULT [id number] Pt needs labwork ordered BROOKE GUO 07/[address] [place] [address])([facility] Pract[facility] e Non-GME FHI1) [address] [place] [address])([facility] Non-GME FHI1) OUTPATIENT [id number] F.U ON MEDS. PH:[phone]*H [phone]*C IRENE DICKSON 08/20 Released w/o Limitations [address] [place] [address])([facility] Pract[facility] e Non-GME FHI1) [address] [place] [address])([facility] Non-GME FHI2) TELE CONSULT [id number] PCM: Marina refill of glucova nce BROOKE GUO 10/[address] [place] [address])([facility] Non-GME FHI2) [address] [place] [address])([facility] Non-GME FHI2) OUTPATIENT [id number] f/u blood pressur e DARCIE AMAYA 10/11 Released w/o Limitations [address] [place] [address])([facility] Pract[facility] e Non-GME FHI2) [address] [place] [address])([facility] Non-GME FHI2) OUTPATIENT [id number] FU FOR BLD WK XRAYS MEDS NOONE CALLED HIM BACK DARCIE AMAYA 12/12 Released w/o Limitations [address] [place] [address])([facility] Practic e Non-GME FHI2) [address] [place] [address])([facility] Non-GME FHI2) TELE CONSULT [id number] PCM: recentl y changed to [facility], has appt [address] Cristobal, out of bp meds. BROOKE GUO 03/[address] [place] [address])(F amily Practic e Non-GME FHI2) [address] [place] [address])([facility] Non-GME FHI2) OUTPATIENT [id number] f/u for test results RUSSEL CRISTOBAL 04/01 Released w/o Limitations [employer] Azar FARIDA ([facility])(F am[facility] Practic e Non-GME FHI2) [employer] Azar [facility])([facility] Non-GME FHI2) TELE CONSULT [id number] DARCIE SANCHEZ 05/22 [employer] [facility] Azar [facility] ([facility])(F amily Practic e Non-GME FHI2) [employer] Azar [facility])([facility]) OUTPATIENT [id number] angioed ALEX Valentin 04/06 Released w/o Limitations [employer] Azar [facility] ([facility])(A ll[facility] Res[facility]c e [facility] ) Procedures Combined list of: 1) Procedures from Department of Veterans Affairs facilities going back up to thelast 18 months, not all VA non-surgical procedures are included; 2) All procedures from the Department of Defense facilities. Procedure Procedure Type Code Date Perfomer Comments Sour e ELECTROCARDIOGRAM, ROUTINE ECG WITH AT LEAST 12 LEADS; WITH INTERPRETATION AND REPORT [facility] AVULSION OF NAIL PLATE, PARTIAL OR COMPLETE, SIMPLE; SINGLE DoD SEDATION WITH OR WITHOUT ANALGESIA (CONSCIOUS SEDATION); INTRAVENOUS, INTRAMUSCULAR OR INHALATION DoD MEDICAL NUTRITION THERAPY; GROUP (2 OR MORE INDIVIDUAL(S)), EACH 30 MINUTES DoD MEDICAL NUTRITION THERAPY; INITIAL ASSESSMENT AND INTERVENTION, INDIVIDUAL, VIYM-BG-GJYN WITH THE PATIENT, EACH 15 MINUTES DoD INTRAVENOUS INFUSION, THERAPY/DIAGNOSIS, ADMINISTERED PHYSICIAN/UNDER DIRECT SUPERVISION, PHYSICIAN; EA ADDITIONAL HOUR, UP TO EIGHT (8) HOURS (LIST SEPARATELY ADDITION TO CODE, PRIMARY PROCEDURE) DoD INCISION OF PERIRECTAL TISSUE DoD COMPUTERIZED AXIAL TOMOGRAPHY OF ABDOMEN DoD INTRAVENOUS INFUSION, THERAPY/DIAGNOSIS, ADMINISTERED PHYSICIAN/UNDER DIRECT SUPERVISION, PHYSICIAN; EA ADDITIONAL HOUR, UP TO EIGHT (8) HOURS (LIST SEPARATELY ADDITION TO CODE, PRIMARY PROCEDURE) DoD NONINVASIVE EAR OR PULSE OXIMETRY FOR OXYGEN SATURATION; SINGLE DETERMINATION DoD Electrocardiogram Electrocardiogram [id number] 10/11 DARCIE AMAYA [facility] Avulsion Of Nail Plate - One Avulsion Of Nail Plate - One [id number] 005 RUSSEL CRISTOBAL [facility] No data available for this section Ambulato ry Pharmacy Social History Combined list of available smoking, tobacco, and other social history from Department of Defense and Veterans Affairs facilities. Social History Type Response Date Comment Sour e This section is an empty social history section. [facility] Assessment and Plan Combined list of future care activities from Department of Defense and Veterans Affairs facilities (e.g., assessment and plan notes, appointments, orders, and referrals). Additional future care activities may be listed in the Plan of Care section. Result Assessment and Plan Date Source Assessment and Plan No data available for this section 03/24/2025 Ambulatory Pharmacy Functional Status Combined list of recent functional and cognitive assessments recorded at Department of Defense and Veterans Affairs (VA).VA Functional Quay Measurement (FIM) Scale: 1 = Total Assistance (Subject = 0% +), 2 = Maximal Assistance (Subject = 25% +), 3 = Moderate Assistance (Subject = 50% +), 4 = Minimal Assistance (Subject = 75% +), 5 = Supervision, 6 = Modified Quay (Device), 7 = Complete Quay (Timely, Safely). Assessment Date/Time Source Assessment Type Assessment Skill Assessment Score Assessment Details No data available for this section
--- OUTSIDE RECORDS SUMMARY | 2025-03-24 11:44 | XMS_ITS | Clinical Summary ---
Author Organization [facility] Address [facility] [place] [address] Care Team Providers Care Speech And Language Assistant Name Role Phone Unavailable Primary Care Provider Unavailabl e Social History Tobacco Use Types Packs/Day Years Used Date Smoking Tobacco: Never Assessed Sex and Gender Information Value Date Recorded Sex Assigned at Not on file Legal Sex Male 4:46 PM CDT Gender Identity Not on file Sexual Orientation Not on file Plan of Treatment Health Maintenance Due Date Last Done Comments Colorectal Cancer Screening Colonoscopy (10 Years) 1952 Hepatitis C 1970 DTaP, Tdap and Td Vaccines ( 1 - Tdap) 1971 Pneumococcal Vaccine: 50+ Ye ars (1 of 1 - PCV) 2002 Zoster Vaccines (1 of 2) 2002 COVID-19 Vaccine ( - 2023-2 5 season) 2024 RSV Immunization or 60+ Years (1 - 1-dose 75+ series) 2027 Meningococcal B Vaccine Aged Out No l onger eligible based on patient's age to complete this topic Meningococcal Vaccine Aged Out No judy evan eligible based on patient's age to complete this topic RSV Immunizations Under 20 Months Aged Out No longer eligible based on patient's age to complete this topic
[2025-03-24 13:54] LABS: Basophils Absolute Auto 0.1 K/mm3 (0.0-0.1); Basophils Percent Auto 1.3 % (0.2-1.2); Eosinophils Absolute Auto 0.2 K/mm3 (0-0.3); Eosinophils Percent Auto 2.2 % (0-4.4); Hematocrit 48.2 % (42.0-52.0); Hemoglobin 15.9 g/dL (14.0-18.0); Immature Granulocyte Absolute 0.03 K/mm3 (0.00-0.031); Immature Granulocyte Percent A 0.4 % (0-0.5); Lymphocytes Absolute Auto 2.13 K/mm3 (0.9-3.2); Lymphocytes Percent Auto 31.7 % (18.3-44.2); Mean Corpuscular Hemoglobin 28.2 pg (26-34); Mean Corpuscular Volume 85.6 fl (80-100); Mean Platelet Volume 10.6 fl (7.4-10.4); Monocytes Absolute Auto 0.5 K/mm3 (0.1-0.6); Neutrophils Absolute Auto 3.8 K/mm3 (1.3-6.7); Neutrophils Percent Auto 56.4 % (45.5-73.1); Platelet Count Result 216 k/mm3 (150-375); Red Blood Count 5.63 M/mm3 (4.6-6.20); Red Cell Distribution Width 12.6 % (11.5-14.5); White Blood Count 6.7 K/mm3 (4.5-10.0)
[2025-03-24 13:58] LABS: Hemoglobin A1C 7.8 % (<5.7)
[2025-03-24 14:33] LABS: Creatinine Urine 48.1 mg/dL
[2025-03-24 15:01] LABS: Alanine Aminotransferase 15 U/L (6-50); Albumin Level 4.3 g/dL (3.5-5.1); Alkaline Phosphatase 91 U/L (38-126); Anion Gap 12 mmol/L (4-12); Aspartate Amino Transferase 44 U/L (17-59); Bilirubin,Total 0.7 mg/dL (0.2-1.3); Blood Urea Nitrogen 14 mg/dL (9-20); Calcium 9.2 mg/dL (8.4-10.2); Carbon Dioxide 17 mmol/L (22-30); Chloride 106 mmol/L (98-107); Cholesterol 248 mg/dL (0-200); Estimated Glomerular Filt Rate > 60; Glucose 124 mg/dL (65-110); HDL Direct 70 mg/dL; Potassium 3.6 mmol/L (3.4-5.0); Sodium 135 mmol/L (137-145); Triglycerides 108 mg/dL (<150)
[2025-03-24 15:12] LABS: LDL Cholesterol Direct 135 mg/dL
[2025-03-24 15:35] LABS: Prostate Specific Antigen 2.2 ng/mL (< OR = 4.0)
[2025-03-24 15:48] LABS: MALB Creatinine Ratio 1327.7 mg/g (0-30); Microalbumin Urine Random 638.6 mg/L (0-16.7)
== END 2025-03-24 10:32 | disposition home or self-care (01) ==
LOC: ANHGOSHLAB 10:32
PROVIDERS: PCP Clinical Nurse Specialist; Visit Provider Clinical Nurse Specialist
DX: F41.9 Anxiety disorder, unspecified (principal); I10 Essential (primary) hypertension; E78.2 Mixed hyperlipidemia; E11.9 Type 2 diabetes mellitus without complications; E53.8 Deficiency of other specified B group vitamins; E55.9 Vitamin D deficiency, unspecified; Z79.4 Long term (current) use of insulin; Z12.5 Encounter for screening for malignant neoplasm of prostate
CPT/HCPCS: 36415; 80053; 80061; 82043; 82306; 83036; 84153; 85025; G0103

== ENCOUNTER 2025-05-18 09:15 | Outpatient (CLI) | payer MEDICARE, OTHER, SELFPAY ==
[2025-05-18 12:08] LABS: MALB Creatinine Ratio 767.6 mg/g (0-30); Microalbumin Urine Random 514.3 mg/L (0-16.7)
== END 2025-05-18 09:16 | disposition home or self-care (01) ==
PROVIDERS: PCP Internal Medicine; Visit Provider Internal Medicine Endocrinology, Diabetes & Metabolism
DX: E11.29 Type 2 diabetes mellitus with other diabetic kidney complication (principal); E11.65 Type 2 diabetes mellitus with hyperglycemia; R80.9 Proteinuria, unspecified; Z79.4 Long term (current) use of insulin
CPT/HCPCS: 82043

== ENCOUNTER 2025-05-21 10:40 | Outpatient (CLI) | payer MEDICARE, OTHER, SELFPAY ==
[2025-05-21 11:31] LABS: Hematocrit 46.3 % (42.0-52.0); Hemoglobin 15.7 g/dL (14.0-18.0); Mean Corpuscular HGB Conc 33.9 g/dl (32-36); Mean Corpuscular Hemoglobin 28.2 pg (26-34); Mean Corpuscular Volume 83.3 fl (80-100); Mean Platelet Volume 10.7 fl (7.4-10.4); Platelet Count Result 230 k/mm3 (150-375); Red Blood Count 5.56 M/mm3 (4.6-6.20); Red Cell Distribution Width 12.7 % (11.5-14.5); White Blood Count 7.5 K/mm3 (4.5-10.0)
[2025-05-21 11:42] LABS: Add Urine Microscopic? YES; Appearance Urine Clear (Clear); Bacteria Urine None Seen /hpf; Bilirubin Urine Negative (Negative); Blood Urine Negative (Negative); Color Urine Yellow (Yellow); Glucose Urine UA 3+ mg/dL (Negative); Ketones Urine Negative (Negative); Leukocyte Esterase Ur Negative LEU/UL (Negative); Nitrate Urine Negative (Negative); Non Pathogenic Casts 0-2; Protein Urine 1+ mg/dL (Negative); RBC Urine 0-2 /hpf (0-2); Specific Grav Ur 1.022 (1.001-1.035); Squamous Epithelial Cell Urine None Seen /hpf (Few); Urobilinogen Urine 0.2 mg/dL (<2.0); WBC Urine 0-5 /hpf (0-3); pH Urine 5.5 (5.0-9.0)
[2025-05-21 11:43] LABS: Albumin Level 4.3 g/dL (3.5-5.1); Anion Gap 11 mmol/L (4-12); Blood Urea Nitrogen 15 mg/dL (9-20); Calcium 9.8 mg/dL (8.4-10.2); Carbon Dioxide 20 mmol/L (22-30); Chloride 106 mmol/L (98-107); Creatine Kinase 104 U/L (55-170); Estimated Glomerular Filt Rate 55; Glucose 128 mg/dL (65-110); Phosphorus 3.4 mg/dL (2.5-4.5); Potassium 3.4 mmol/L (3.4-5.0); Sodium 137 mmol/L (137-145)
[2025-05-21 11:46] LABS: Creatinine Urine 71.5 mg/dL; Total Protein Urine Random 64 mg/dL
[2025-05-21 11:50] LABS: Complement C3 126 mg/dL (88-165)
[2025-05-21 13:15] LABS: Erythrocyte Sedimentation Rate 29 mm/hr (0-20)
[2025-05-22 11:18] LABS: Kappa\\Lambda Light Chains 1.94 (0.26-1.65); Lambda Light Chain 23.1 mg/L (5.7-26.3)
[2025-05-22 13:33] LABS: Complement Total CH50. 47 U/mL (31-60)
[2025-05-24 14:58] LABS: Immunofixation, Serum. Normal pattern.
== END 2025-05-21 10:41 | disposition home or self-care (01) ==
PROVIDERS: PCP Internal Medicine; Visit Provider Internal Medicine Nephrology
DX: R80.9 Proteinuria, unspecified (principal); E11.29 Type 2 diabetes mellitus with other diabetic kidney complication; I10 Essential (primary) hypertension
CPT/HCPCS: 36415; 80069; 81001; 82550; 82570; 83883; 84156; 85027; 85652; 86038; 86039; 86160; 86162; 86334